=== PATIENT | male | born 1960 | race Caucasian/White ===

== ENCOUNTER 2023-10-30 02:31 | Emergency (ER) | payer SELFPAY ==
[2023-10-30 02:33] VITALS: BP 153/69; PULSE 60; RESP 12; TEMP 37.1; O2SAT 95; BMI 19.9
--- NOTE | 2023-10-30 02:38 | EX.ED.DYSGE1 ---
HPI History of Present Illness Chief Complaint: Abscess Informant: patient Narrative Narrative: Tender swollen area on the back of the patient's neck that has been growing, started 2 or 3 days ago. Occasional scant drainage on Band-Aid. No systemic symptoms of fevers or chills or anything else. Never had this before. Presents by EMS because he states he does not have a car/transportation, not for any other reason. PFSH PFS Medical History Gastritis GERD (gastroesophageal reflux disease) Home Medications sulfamethoxazole 800 mg-trimethoprim 160 mg tablet 1 tab PO BID #20 TABLETS 10/30/23 [Rx Last Taken Unknown] Allergy/AdvReac Type Severity Reaction Status Date / Time Penicillins Allergy Severe Anaphylaxis Verified 10/30/23 02:33 Social History Smoking Status: Current every day smoker ROS ROS ED Constitutional Constitutional ED: Denies chills or fever(s) Musculoskeletal Musculoskeletal: Reports neck pain; Denies back pain Integumentary Reports abscess; Denies rash Neurologic Neurologic: Denies headache(s), paresthesias or weakness EXAM Physical Exam Const Vital Signs: 10/30/23 02:33 Temperature 98.7 F Temperature Source Temporal Pulse Rate 60 Respiratory Rate 12 Blood Pressure 153/69 H Blood Pressure Mean 97 Pulse Ox 95 Oxygen Delivery Method Room Air Positive well nourished and well developed General Appearance ED: well developed and NAD HEENT Reports moist mucous membranes Eyes PERRL and EOMs intact bilaterally Neck supple Neck Narrative: Range of motion without difficulty. Tender pointing fluctuant cellulitic abscess that is approximately 4 cm in diameter on the posterior aspect of the left mid neck. No spontaneous discharge. There is a scab in the center of it. Extremity normal to inspection Extremity Narrative: from x 4 Neuro oriented x3, CN's II-XII intact bilaterally and no sensory deficits noted Motor Exam: strength 5/5 throughout Psych mental status grossly normal Skin Skin Narrative: Cutaneous abscess posterior aspect of the neck. MDM MDM MDM Narrative Medical decision making narrative: Incision and drainage of this abscess was performed, purulent material was expressed see the procedure note. Assume this is MRSA. He was started on Bactrim and will give be given a prescription and instructions for supportive care at home. Procedures Other Procedures Procedure(s): Complex incision and drainage cutaneous abscess neck: After informed consent, sterile prep and drape with chlorhexidine and isopropanol, local anesthesia with 1% lidocaine plain was performed with 5 cc, providing adequate local anesthesia. Incision was made 1 cm linear with a #15 blade, purulent material was expressed, the cavity was deloculated and irrigated from the inside out with sterile saline gently, packed with quarter inch gauze. Dressed with bacitracin, no complications and patient tolerated very well. Discharge Plan Triage Chief Complaint: Abscess ED Provider: Ashish Betancourt Dx/Rx/DC Orders Clinical Impression: Cutaneous abscess of neck Instructions: ED Abscess Incision And Drainage Prescriptions: New sulfamethoxazole-trimethoprim [sulfamethoxazole-trimethoprim] 800-160 mg tablet 1 tab PO BID Qty: 20 0RF Primary Care Provider: Care Physician,No Primary Referrals: Marilou Villegas [Non-Staff] - As Needed Activity Restrictions/Additional Instructions: Try to leave packing intact for 48 hours and then remove and discard. If it falls out earlier than that, do not worry about it, just continue dressing changes. If there is any water that gets into the area after a shower or what not, you may gently apply pressure to the surrounding area to express it prior to a new dressing change. Antibiotic ointment on the area with these dressing changes okay as well. If you are concerned about it recurring or getting worse, return to the ER for reevaluation. Disposition Disposition: Home, Self Care
[2023-10-30] MEDS: Smz/Tmp Ds Tablet 1 TABLET PO (02:42)
[2023-10-30] MEDS: Lidocaine 1% (20 ml mdv) 20 ML Vial INFILT (02:42)
== END 2023-10-30 03:21 | disposition home or self-care (01) ==
PROVIDERS: Emergency Provider Emergency Medicine; Visit Provider Emergency Medicine
DX: L02.11 Cutaneous abscess of neck (principal); F17.200 Nicotine dependence, unspecified, uncomplicated; Z59.82 Transportation insecurity
CPT/HCPCS: 10061; 99282